=== PATIENT | male | born 1990 | race Caucasian/White ===

== ENCOUNTER 2017-10-10 13:37 | Day surgery (SDC) | payer OTHER ==
[~2017-10-10] VITALS: Ht 188 cm; Wt 109.5 kg
[2017-10-10] MEDS ORDERED: NO HOME MEDICATIONS (13:55)
[2017-10-10 14:00] VITALS: BP 133/87; PULSE 73; TEMP 98.4
[2017-10-10 15:25] VITALS: BP 131/79; PULSE 67; TEMP 98.4
[2017-10-10 15:41] VITALS: BP 118/82; PULSE 71
[2017-10-10 15:55] VITALS: BP 125/76; PULSE 56
== END 2017-10-10 16:25 | disposition home or self-care (01) ==
LOC: SDCO 13:37
DX: K92.1 Melena (principal); K64.0 First degree hemorrhoids
CPT/HCPCS: J2250; J3010